=== PATIENT | male | born 2000 | race Caucasian/White ===

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

== ENCOUNTER 2021-07-27 14:55 | Emergency (ER) | payer BC, SELFPAY ==
[2021-07-27 16:00] VITALS: BP 146/82; PULSE 66; RESP 18; TEMP 37; O2SAT 99; BMI 24.0
[2021-07-27 16:16] LABS: UTC Strep Screen (Rapid) Positive (Negative)
--- NOTE | 2021-07-27 16:38 | HMH.EDUTC ---
[facility] [place] Clinical Impression: Strep throat Disposition: Home, Self-Care Condition on Discharge: Good Instructions: DI for Strep Throat, Strep Throat Additional Instructions: *Monitor Temp, Over the counter Motrin or Tylenol as directed/as needed Tylenol every 4 hours and Motrin every 6 hours (as long as your family doctor has told you that you can take it) for fever or pain. and straight to ER if unable to lower temp less than 101.0 after medication given *Warm salt water gargles may help to soothe the throat *Throat Lozenges *Warm fluids like tea with honey may help to soothe the throat *Sleep elevated *Humidifier/Vaporizer *If you did not take Penicillin shot or was unable to, start taking antibiotic immediately and make sure that you take it for the FULL length of time although you should start to feel better in 24-48 hours *change toothbrush and toothpaste 24-48 hours after starting to take antibiotics so you do not reinfect yourself Monitor Temp. Tylenol and/or Ibuprofen as needed. ER if fever is no less than 101 despite alternating Tylenol and Ibuprofen * Encourage fluids, water, Gatorade, powerade, pedialyte if infant/toddler/or child *Cold fluids, popsicles and ice cream may feel good on his throat Follow up IMMEDIATELY for new or worsening symptoms or no Noticeable improvement over the next 48-72 hours. 911 for difficulty breathing or swallowing Prescriptions: Amoxicillin [Amoxicillin 875MG Tab] 875 mg PO Q12H #20 tab Transmission Status: Pending to [id number] Referrals: Provider,Referral, [Primary Care Provider] - As needed Forms: Work/School Release Medical Decision Making - Ernesto Inquiry Pt receiving controlled substance: No Ernesto was queried for this patient: No Vital Signs: 07/27/21 16:00 Temperature 98.6 F Temperature Source Oral Pulse Rate [Right Brachial] 66 Respiratory Rate 18 Blood Pressure [Right Arm] 146/82 H Blood Pressure Mean [Right Arm] 103 Blood Pressure Source [Right Arm] Automatic Cuff Blood Pressure Position [Right Arm] Sitting 02 Sat by Pulse Oximetry 99 Oxygen Delivery Method Room Air - Lab Data Lab results reviewed: Yes: I reviewed the patient's lab results. Lab Results 07/27/21 16:15: Strep Scn Rapid Clinic Positive A [facility] [place] HPI - General Stated complaint: sore throat, runny nose, headache Time Seen by Provider: 07/27/21 16:38 Mode of Arrival: Ambulatory Source of Information: Patient Limitations: No Limitations Description of Symptoms (Recalled from Triage Doc. by RN): PATIENT C/O SORE THROAT THAT STARTED LAST NIGHT. HE REPORTS USING HIS GIRLFRIEND'S VAPE AND IT POPPED IN HIS MOUTH. STATES HIS GIRLFRIEND HAS BEEN FEELING BAD WELL HEENT Symptoms (Recalled from RN notes): Yes Resp Symptoms (Recalled from RN notes): No Skin Symptoms (Recalled from RN notes): No MS Symptoms (Recalled from RN notes): No Functional Status (Recalled from RN notes): WNL - History of Present Illness Provider Complaint: Patient states that his girlfriend has not been feeling well and he was with her last night and use her vape and it popped States that he noticed he was having some redness and several small red patchy like area in the back of his throat and worried that it may have burned him or something when he was still having sore throat today so he came in - Related Data Previous Rx's Medication Instructions Recorded Brompheniramine/Pseudoephed/Dm 10 ml PO Q4HP PRN #250 ml 11/07/17 [Bromfed DM Cough Syrup 5mL] Fluticasone Propionate [Flonase 2 spr NS DAILY #1 bottle 11/07/17 50mcg nasal spray 16gm] Amoxicillin [Amoxicillin 875MG 875 mg PO Q12H #20 tab 07/27/21 Tab] Allergies Allergy/AdvReac Type Severity Reaction Status Date / Time No Known Allergies Allergy Verified 11/07/17 16:03 - Worker's Comp Is this a Worker's Comp case?: No [facility] History - Hepatitis A Screen Drug use history?: No High risk sexual beha
[2021-07-27 16:48] VITALS: BP 146/82; PULSE 66; RESP 18; TEMP 37; O2SAT 99
== END 2021-07-27 16:51 | disposition home or self-care (01) ==
PROVIDERS: Emergency Provider Nurse Practitioner
DX: J02.0 Streptococcal pharyngitis (principal)
CPT/HCPCS: 87880; 99202; G0463

== ENCOUNTER → 2021-07-30 10:40 | Outpatient (CLI) | payer BC, SELFPAY | PROVIDERS: PCP Family Medicine; Visit Provider Nurse Practitioner | DX: Z20.822 Contact with and (suspected) exposure to COVID-19 (principal); U07.1 COVID-19 | CPT/HCPCS: C9803; U0003; U0005 ==

== ENCOUNTER → 2021-08-05 11:43 | Outpatient (CLI) | payer BC, SELFPAY | PROVIDERS: PCP Family Medicine; Visit Provider Nurse Practitioner | DX: Z20.822 Contact with and (suspected) exposure to COVID-19 (principal); U07.1 COVID-19 | CPT/HCPCS: C9803; U0003; U0005 ==

== ENCOUNTER → 2021-08-08 12:04 | Outpatient (CLI) | payer BC, SELFPAY | PROVIDERS: PCP Family Medicine; Visit Provider Nurse Practitioner | DX: U07.1 COVID-19 (principal) | CPT/HCPCS: C9803; U0003; U0005 ==

== ENCOUNTER 2022-08-23 22:55 | Emergency (ER) | payer BC, SELFPAY ==
[2022-08-23 22:57] VITALS: BP 172/73; PULSE 87; RESP 16; TEMP 36.8; O2SAT 100; BMI 25.0
--- NOTE | 2022-08-23 23:31 | XR_ITS ---
PROCEDURE INFORMATION: Exam: XR Chest Exam date and time: 08/23/2022 11:25 PM Age: 22 years old Clinical indication: Patient HX: Drainage, cough; Additional info: Congestion TECHNIQUE: Imaging protocol: Radiologic exam of the chest. Views: 2 views. COMPARISON: No relevant prior studies available. FINDINGS: Lungs: No acute airspace consolidation. No appreciable pulmonary edema. Pleural spaces: No pleural effusion. No pneumothorax. Heart/Mediastinum: Cardiomediastinal silouhette is within normal limits. Bones/joints: No evidence of acute osseous abnormality. IMPRESSION: No acute findings. No evidence of pneumonia.
[2022-08-23 23:40] LABS: Coronavirus 19, PCR Not Detected (NotDetected); Influenza A, PCR Not Detected (NotDetected); Influenza B, PCR Not Detected (NotDetected)
--- NOTE | 2022-08-24 02:38 | HMH.EDURI ---
Discharge Plan Disposition Patient Disposition: Home, Self-Care Prescriptions Prescriptions: New prednisone [prednisone] 20 mg tablet 20 mg PO BID Qty: 10 0RF cephalexin [cephalexin] 500 mg capsule 500 mg PO TID Qty: 30 0RF No Action amoxicillin 875 MG tablet 875 mg PO Q12H Qty: 20 0RF kiixpgklyylrpjv-zhikvktie-BG 473 ML syrup 10 ml PO Q4HP PRN (Reason: Cough) Qty: 250 0RF fluticasone propionate 120 SPR/BOT bottle 2 spr NS DAILY Qty: 1 0RF Referrals Follow up/Referrals: Cy Montez MD [Primary Care Provider] - See instructions Clinical Impressions Clinical Impression: Pharyngitis Instructions Patient Instructions: DI for Pharyngitis/Tonsillopharyngitis -- Adult Discharge ED Provider: Don Conklin URI/Sore Throat HPI General Chief Complaint: Upper Respiratory Infection Stated Complaint: congestion, SOA Time Seen by Provider: 08/24/22 02:38 Mode of Arrival: Ambulatory Source of Information: Patient and Medical Record Limitations: No Limitations Description of Symptoms (Recalled from ER Triage Doc. by RN): pt c/o runny nose and congestion x 3 days ago History of Present Illness HPI Narrative: congestion and sense of fullness to throat on rt with cough up mucous in am - no def dysphonia and able to swallow liquids - Complaint: sore throat Onset (ago): hour(s) Duration: intermittent Severity: moderate Able to tolerate fluids by mouth: Yes Associated symptoms: denies other symptoms Related Data Previous Rx's Medication Instructions Recorded igvnxuavxijbwwj-lvuzitkzdjyqoqi-BV 10 ml PO Q4HP PRN Cough #250 mL 11/07/17 2 mg-30 mg-10 mg/5 mL oral syrup fluticasone propionate 50 2 spr NS DAILY ##1 11/07/17 mcg/actuation nasal spray,suspension amoxicillin 875 mg tablet 875 mg PO Q12H #20 tabs 07/27/21 cephalexin 500 mg capsule 500 mg PO TID #30 caps 08/24/22 prednisone 20 mg tablet 20 mg PO BID #10 tabs 08/24/22 Allergies Allergy/AdvReac Type Severity Reaction Status Date / Time No Known Allergies Allergy Verified 11/07/17 16:03 PFSH PFSH Social History Smoking Status: Never smoker alcohol intake: never current occupational status: employed Travel in the last 8 weeks: None ROS Obtained: Yes All systems reviewed & no additional complaints except as documented Physical Exam General General appearance: alert Head Head exam: normocephalic Eye Eye exam: Present PERRL and EOMI ENT ENT exam: Present normal oropharynx and mucous membranes moist Neck Neck exam: Present full ROM and trachea midline; Absent tenderness or lymphadenopathy Respiratory Respiratory exam: Present normal lung sounds bilaterally; Absent respiratory distress Cardiovascular Cardiovascular exam: Present regular rate Abdominal Exam Abdominal exam: Present soft Extremities Exam Extremities exam: Present full ROM Neurological Exam Neurological exam: Present alert, oriented X3 and CN II-XII intact Psychiatric Psychiatric exam: Present normal affect Skin Skin exam: Absent rash Medical Decision Making Medical Records Medical records reviewed: Yes I reviewed the patient's medical records. Ernesto Inquiry Pt receiving controlled substance: No Vital Signs: 08/23/22 22:57 Temperature 98.3 F Temperature Source Oral Pulse Rate [Right] 87 Respiratory Rate 16 Blood Pressure [Right Arm] 172/73 H Blood Pressure Mean [Right Arm] 106 02 Sat by Pulse Oximetry 100 Lab Data Lab results reviewed: Yes I reviewed the patient's lab results. Lab Results 08/23/22 23:07: SARS-CoV-2 (PCR) Not detected, Influenza A Untype (PCR) Not detected, Influenza Type B (PCR) Not detected Orders (Tests/Meds): ED MEDICATIONS Generic Name Dose Route Start Last Admin Trade Name Usmanq PRN Reason Stop Dose Admin Cephalexin HCl 500 mg 08/24/22 02:47 Cephalexin 500mg Capsule PO 08/24/22 02:48 ONCE ONE Prednisone 40 mg 08/24/22 02:47 Prednisone 20mg Tab PO
[2022-08-24 03:01] VITALS: BP 147/78; PULSE 81; RESP 16; TEMP 36.8; O2SAT 100
== END 2022-08-24 03:03 | disposition home or self-care (01) ==
PROVIDERS: Emergency Provider Emergency Medicine; PCP Family Medicine
DX: J06.9 Acute upper respiratory infection, unspecified (principal); J02.9 Acute pharyngitis, unspecified; R05.9 Cough, unspecified; R06.02 Shortness of breath; Z20.822 Contact with and (suspected) exposure to COVID-19; Z79.51 Long term (current) use of inhaled steroids; Z79.52 Long term (current) use of systemic steroids; Z79.899 Other long term (current) drug therapy
CPT/HCPCS: 71046; 99283; C9803; U0003; U0005

== ENCOUNTER 2023-11-03 17:55 | Outpatient (CLI) | payer BC, SELFPAY | END 2023-11-03 23:59 | LOC: LAB.DROPOF 17:58 | PROVIDERS: PCP Nurse Practitioner Family; Visit Provider Nurse Practitioner Family | DX: J02.9 Acute pharyngitis, unspecified (principal); R11.2 Nausea with vomiting, unspecified | CPT/HCPCS: 87070 ==